=== PATIENT | female | born 1995 | race Caucasian/White ===

== ENCOUNTER 2018-10-03 06:00 | Day surgery (SDC) | payer OTHER | END 2018-10-03 14:23 | disposition home or self-care (01) | LOC: CIR.AMB 06:00 | PROVIDERS: Plastic Surgery | PROC: 0HQV0ZZ Repair Bilateral Breast, Open Approach (ICD-10-PCS; principal; 2018-10-03 16:00) | DX: N64.81 Ptosis of breast (principal) ==

== ENCOUNTER 2020-06-13 14:06 | Outpatient (CLI) | payer OTHER | END 2020-06-13 14:20 | disposition home or self-care (01) | LOC: RAD 14:06 | PROVIDERS: ATTEND Internal Medicine | DX: M25.562 Pain in left knee (principal); M54.5 Low back pain; I10 Essential (primary) hypertension; Z01.810 Encounter for preprocedural cardiovascular examination; E03.8 Other specified hypothyroidism; E78.89 Other lipoprotein metabolism disorders; E55.9 Vitamin D deficiency, unspecified; E11.51 Type 2 diabetes mellitus with diabetic peripheral angiopathy without gangrene; E11.9 Type 2 diabetes mellitus without complications ==